=== PATIENT | female | born 1980 | race Caucasian/White ===

== ENCOUNTER 2019-12-08 10:42 | Day surgery (SDC) | payer BC ==
[~2019-12-08] VITALS: Ht 160 cm; Wt 170.0 kg
[2019-12-08 10:49] VITALS: BP 142/90
[2019-12-08] MEDS ORDERED: fentaNYL/PF 50MCG/1 ML 2ML syringe ONE (11:06)
[2019-12-08] MEDS ORDERED: LIDOcaine Viscous 15ml cup ONE (11:07)
[2019-12-08] MEDS ORDERED: MIDAZolam 5mg/5ml vial ONE (11:07)
[2019-12-08] MEDS ORDERED: OMEP-50 PO (11:20)
[2019-12-08] MEDS ORDERED: GABA-534 PO (11:20)
[2019-12-08] MEDS ORDERED: LISI1TAB29 PO (11:21)
[2019-12-08] MEDS ORDERED: MINO100T PO (11:24)
[2019-12-08] MEDS ORDERED: CYMBALTA PO (11:26)
[2019-12-08] MEDS ORDERED: METF750T46 PO (11:27)
[2019-12-08 11:54] VITALS: BP 136/73
[2019-12-08 12:04] VITALS: BP 135/76
[2019-12-08 12:14] VITALS: BP 125/67
== END 2019-12-08 12:30 | disposition home or self-care (01) ==
LOC: GI LAB 10:42
PROVIDERS: ATTEND Internal Medicine Gastroenterology
DX: K22.70 Barrett's esophagus without dysplasia (principal); K31.7 Polyp of stomach and duodenum; K44.9 Diaphragmatic hernia without obstruction or gangrene; K20.8 Other esophagitis; D17.5 Benign lipomatous neoplasm of intra-abdominal organs
CPT/HCPCS: 43239; 43251; 99152; C1773; J2250; J3010; J7040; A4620

== ENCOUNTER 2024-11-29 05:46 | Emergency (ER) | payer BC ==
[~2024-11-29] VITALS: Ht 157.5 cm; Wt 250.3 kg
[~2024-11-29 05:46] MED LIST: CYMBALTA PO; GABA-535 PO; LISI1TAB53 PO; METF750T46 PO; MINO100T10 PO; OMEP20CA16 PO
[2024-11-29 06:23] LABS: BASOPHILS % (AUTO) 0.3 % (0-1); EOSINOPHILS # (AUTO) 0.1 X10'3 (0-0.9); EOSINOPHILS % (AUTO) 0.6 % (0-6); HEMATOCRIT 43.1 % (35.0-45.0); HEMOGLOBIN 14.4 g/dl (12.0-16.0); LYMPHOCYTES # (AUTO) 2.1 X10'3 (1.1-4.8); LYMPHOCYTES % (AUTO) 14.7 % (21-51); MEAN CORPUSCULAR HEMOGLOBIN 29.1 PG (27.0-31.0); MEAN CORPUSCULAR HGB CONC 33.3 g/dL (33.0-36.5); MEAN CORPUSCULAR VOLUME 87.3 FL (78-98); MEAN PLATELET VOLUME 7.5 FL (7.4-10.4); MONOCYTES # (AUTO) 0.7 X10'3 (0-0.9); MONOCYTES % (AUTO) 4.6 % (2-12); NEUTROPHILS # (AUTO) 11.3 X10'3 (1.8-7.7); NEUTROPHILS % (AUTO) 79.8 % (42-75); PLATELET COUNT 338 X10'3 (140-440); RED BLOOD COUNT 4.93 X10'6 (4.20-5.60); RED CELL DISTRIBUTION WIDTH 13.8 % (11.5-14.5); WHITE BLOOD COUNT 14.2 X10'3 (4.5-11.0)
[2024-11-29] MEDS: diatr meglu/diatrizoate 30ml oral sol.-(3 dose) bottle PO ONE (06:30)
[2024-11-29] MEDS ORDERED: diatrozoate meglu/diatrozoate sod (37% iodine) 120ML oral solution PO ONE (06:30)
[2024-11-29] MEDS: haloperidol lactate 5mg/ml inj IVH ONE (06:34)
[2024-11-29 06:38] LABS: ALANINE AMINOTRANSFERASE 25 U/L (12-78); ALBUMIN 4.1 G/DL (3.4-5.0); ALBUMIN/GLOBULIN RATIO 1.2 (1.1-1.5); ALKALINE PHOSPHATASE 68 IU/L (46-116); ANION GAP 13 (8-16); ASPARTATE AMINO TRANSFERASE 21 U/L (10-37); BILIRUBIN,TOTAL 0.5 MG/DL (0.1-1.0); BLOOD UREA NITROGEN 10 MG/DL (7-18); BUN/CREATININE RATIO 12.2 (10.0-20.0); CALCIUM 9.4 MG/DL (8.5-10.1); CHLORIDE 108 MMOL/L (99-107); CREATININE 0.82 MG/DL (0.40-0.90); GLUCOSE 151 MG/DL (70-104); LIPASE 62 U/L (16-77); POTASSIUM 3.9 MMOL/L (3.5-5.1); SODIUM 144 MMOL/L (135-145); TOTAL CARBON DIOXIDE 23.5 MMOL/L (24-32); TOTAL PROTEIN 7.4 G/DL (6.4-8.2); eCRCL 69 ML/MIN; eGFR 75 ML/MIN
--- NOTE | 2024-11-29 06:43 | Physician Documentation ---
History of Present Illness Chief Complaint: Abdominal Pain w/vomiting Stated Complaint: DEHYDRATED Time Seen by MD: 06:06 HPI 44 yof h/o obesity, htn, daily thc use p/w n/v. Ongoing overnight into this am. No abdominal pain. No chest pain. No sob. No VB or discharge. Medication Reconciliation Allergies: Coded Allergies: Penicillins (Unverified Allergy, Intermediate, RASH,FEVER, 11/29/24) hydrocodone (Unverified Allergy, Intermediate, N/V,AMPAMPED,UP, 11/29/24) Scheduled Gabapentin (Gabapentin), 1 CAP PO DAILY, (Reported) Lisinopril/Hydrochlorothiazide (Lisinopril-Hctz 20-25 mg Tab), 1 TAB PO DAILY, (Reported) Metformin Hcl* (Glucophage ER*), 1 TAB PO DAILY, (Reported) Minocycline HCl (Minocycline HCl), 1 TAB PO DAILY, (Reported) Omeprazole (Omeprazole), 1 CAP PO DAILY, (Reported) [Cymbalta], 90 MG PO DAILY, (Reported) Review of Systems All Other Systems at this time: Reviewed and Negative Constitutional: Denies: fever Physical Exam Vital Signs: Temperature: 97.8, Source: Temporal, Heart Rate: 47, Respiratory Rate: 19, BP: 173/83, Pulse Oximetry: 100, Weight: 250.300 Oxygen Flow Rate: 0 Physical Exam non toxic pulm ctab abd soft non tender skin pwd moist mucous membranes neuro awake alert oriented. Progress Results/Orders Reviewed/noted all lab results: Yes Results/Orders Completed Orders - SHERICE HUANG MD Haloperidol Lact. (Haldol) (11/29/24 06:10) Diatr Meglu/Diatrizoate 30ml (Gastrograf (11/29/24 06:30) Medications Received in ER Medications (Trade) Dose Ordered Sig/Flavia Route PRN Reason Start Time Stop Time Status Last Admin Dose Admin (Haldol) 2 mg ONCE ONCE IVH 11/29/24 06:10 11/29/24 06:12 DC 11/29/24 06:34 2 MG Vital Signs 11/29/24 05:50 Temp 97.8 Pulse 47 Resp 19 B/P (MAP) 173/83 Pulse Ox 100 O2 Flow Rate 0 Laboratory Tests Test 11/29/24 06:03 White Blood Count 14.2 H Red Blood Count 4.93 Hemoglobin 14.4 Hematocrit 43.1 Mean Corpuscular Volume 87.3 Mean Corpuscular Hemoglobin 29.1 Mean Corpuscular Hemoglobin Concent 33.3 Red Cell Distribution Width 13.8 Platelet Count 338 Mean Platelet Volume 7.5 Neutrophils (%) (Auto) 79.8 H Lymphocytes (%) (Auto) 14.7 L Monocytes (%) (Auto) 4.6 Eosinophils (%) (Auto) 0.6 Basophils (%) (Auto) 0.3 Neutrophils # (Auto) 11.3 H Lymphocytes # (Auto) 2.1 Monocytes # (Auto) 0.7 Eosinophils # (Auto) 0.1 Basophils # (Auto) 0.0 CBC Comment Sodium Level 144 Potassium Level 3.9 Chloride Level 108 H Carbon Dioxide Level 23.5 L Anion Gap 13 Blood Urea Nitrogen 10 Creatinine 0.82 Estimated GFR/1.73 m2 75 BUN/Creatinine Ratio 12.2 Glucose Level 151 H Calcium Level 9.4 Total Bilirubin 0.5 Aspartate Amino Transf (AST/SGOT) 21 Alanine Aminotransferase (ALT/SGPT) 25 Alkaline Phosphatase 68 Total Protein 7.4 Albumin 4.1 Globulin 3.3 Albumin/Globulin Ratio 1.2 Lipase 62 Chemistry Comments Re-Evaluation Re-Evaluation : Re-Evaluation Time: 11:05 Re-Evaluation: Resolved Progress I reassessed the patient at 11:05 a.m. she is currently symptom free she is feeling much better she has no right upper quadrant tenderness. I further discussed her ultrasound and CT scan findings of enlarged gallbladder with borderline cholecystitis. She has no right upper quadrant tenderness. No fever no leukocytosis and with resolution of pain I doubt this radiologic finding is related to her nausea she is more likely related to her GLP 1 agonist and THC use Medical Decision Making Differential Dx:Considerations: Include: -Complete, Appendicitis, Bowel obstruction, Ischemic bowel, Ovarian cyst/torsion, Pancreatitis, Urinary tract infection Departure Disposition: 01 HOME / SELF CARE / HOMELESS Impression: Primary Impression: Vomiting Qualified Codes: R11.10 - Vomiting, unspecified Additional Impression: Cholelithiasis Qualified Codes: K80.80 - Other cholelithiasis without obstruction Additional Instructions: Please follow up with surgery. Call the number listed to schedule an appointment. Return for fever or pain in your right upper abdomen, right lower ribs. Also consider reducing your THC use, try CBD oil in combination with Capsaicin cream (over the counter) Referrals: NO PRIMARY CARE PROVIDER (PCP) HAI ULLOA MD Prescriptions ONDANSETRON ODT 4mg tablet (ONDANSETRON ODT) 4 Mg Tab.rapdis 1 TAB PO Q6H PRN PRN for nausea/vomiting for 4 Days, #16 TAB 0 Refills Prov: SHERICE HUANG MD 11/29/24 Signature Scribe Signature: [email or web address] Attestation: SHERICE Dial MD November 29, 2024 06:43
[2024-11-29 07:07] LABS: BILIRUBIN,URINE NEGATIVE (Neg); CLARITY,URINE SLIGHTLY CLOUDY (Clear); COLOR,URINE YELLOW (Yellow); GLUCOSE, URINE NEGATIVE (Neg); KETONES,URINE 40 mg/dl (Neg); LEUKOCYTE ESTERASE ,URINE NEGATIVE (Neg); NITRITES, URINE NEGATIVE (Neg); OCCULT BLOOD,URINE MODERATE (Neg); PROTEIN,URINE TRACE mg/dl (Neg); UROBILINOGEN,URINE 0.2 E.U/dL (0.2-1.0)
[2024-11-29 07:12] LABS: URINE HCG NEGATIVE (NEG)
[2024-11-29 07:19] LABS: UA COLLECTION TYPE CLN CATCH MIDSTREAM
[2024-11-29 07:21] LABS: SQUAMOUS EPITHELIAL CELL,UR MODERATE /LPF (FEW)
[2024-11-29 07:23] LABS: BACTERIA,URINE FEW /HPF (Neg); WBC,URINE 0-4 /HPF (0-4)
[2024-11-29 07:24] LABS: RBC,URINE 0-2 /HPF (0-2)
[2024-11-29 07:26] LABS: AMORPHOUS PHOSPHATES 2+
[2024-11-29] MEDS: proCHLORperazine 10 MG/2 ml inj IV ONE (07:31)
[2024-11-29] MEDS: diphenhydrAMINE 50 mg/ml inj IV ONE (07:32)
--- NOTE | 2024-11-29 07:42 | ELECTROCARDIOGRAPH REPORT ---
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 Alvin Carney Measurements Intervals [place] Rate: 41 P: 50 DC: 180 QRS: 49 QRSD: 102 T: 37 QT: 490 QTc: 405 Interpretive Statements Slow sinus arrhythmia Electronically Signed On 11-29-2024 15:46:[address] Alvin Carney Please click the below link to view image of tracing.
[2024-11-29] MEDS ORDERED: iohexol 300mg/ml 100ml inj. ONE (08:23)
--- NOTE | 2024-11-29 09:15 | RADIOLOGY REPORT ---
CLINICAL INFORMATION: 44 years old, Female; abdominal pain. TECHNIQUE: Axial CT images of the abdomen and pelvis were obtained after the uneventful administratio n of 100 mL Omnipaque 300 IV contrast. Coronal and sagittal reformatted images were obtained, reviewe d, and stored. All CT scans at this medical facility are performed using dose modulation techniques a s appropriate to a performed exam including the following: Automated exposure control was utilized; a djustment of the MA and/or KV according to patient size; and use of iterative reconstruction techniqu e. CTDIvol = 34.02 mGy DLP = 1799.77 mGy-cm COMPARISON: None FINDINGS: Lung bases: Atelectasis in the lung bases. Liver: Mild hepatomegaly, with the liver measuring up to 16.5 cm in craniocaudal dimension at approxi mately the mid clavicular line. Biliary: Calcified gallstones in the gallbladder. There is pericholecystic fluid possible gallbladder wall thickening.Spleen: Unremarkable. Pancreas: Unremarkable. No inflammatory changes, ductal dilatation, or mass identified. Adrenal glands: Unremarkable. No mass. Kidneys: No hydronephrosis or mass. Aorta/Vascular: No aneurysm or significant calcification. Retroperitoneum: Small subcentimeter retroperitoneal lymph nodes, likely reactive. Bowel/mesentery: No small bowel obstruction. No free air or free fluid. Appendix is not visualized. P ostsurgical changes of prior gastric sleeve surgery. Pelvic organs: Grossly unremarkable. Bladder: Unremarkable. No mass. Abdominal wall: Fat containing infraumbilical ventral hernia just to the left of midline measuring up to 6.6 cm, with mild stranding. Bones: No acute fracture or focal intraosseous lesion. IMPRESSION: 1. Cholelithiasis. There is pericholecystic fluid and possible gallbladder wall thickening. Correlate clinically for acute cholecystitis. Ultrasound could be obtained to further evaluate if clinically i ndicated. 2. Fat containing infraumbilical ventral hernia with mild stranding. 3. Mild hepatomegaly. 4. Additional findings as described above.
--- NOTE | 2024-11-29 09:54 | RADIOLOGY REPORT ---
CLINICAL INFORMATION: 44 years old, Female; abdominal pain. TECHNIQUE: Grayscale sonographic imaging of the right upper quadrant of the abdomen was performed, a ssisted by color Doppler technique. COMPARISON: None FINDINGS: The gallbladder wall measures 3 mm in thickness, at the upper limits of normal. There ar e shadowing gallstones in the gallbladder. Small amount of pericholecystic fluid. Sonographic Georges' s sign not reported. The common bile duct measures 3.3 mm in diameter, within normal limits. Liver is enlarged, measuring up to 19.2 cm in craniocaudal dimension. Increased echogenicity of the liver suggesting fatty infiltration. The pancreas is partly obscured, likely by bowel gas. The visualized portions appear normal. The right kidney measures 11.5 cm. There is no hydronephrosis. Normal cortical echogenicity and co rtical thickness. IMPRESSION: 1. Cholelithiasis with gallbladder wall thickness at the upper limits of normal and small amount of p ericholecystic fluid. Acute cholecystitis not excluded. Correlate with clinical findings. 2. Hepatomegaly and hepatic steatosis.
[2024-11-29] MEDS ORDERED: ONDA-243 PO (11:09)
[2024-11-29 11:28] VITALS: BP 176/105; PULSE 52; RESP 16; TEMP 97.8; O2SAT 95
== END 2024-11-29 14:43 | disposition home or self-care (01) ==
LOC: ER 05:47
DX: K80.20 Calculus of gallbladder without cholecystitis without obstruction (principal); R11.10 Vomiting, unspecified; I10 Essential (primary) hypertension; Z88.0 Allergy status to penicillin; Z88.5 Allergy status to narcotic agent; Z79.899 Other long term (current) drug therapy; Z79.84 Long term (current) use of oral hypoglycemic drugs
CPT/HCPCS: 36415; 74177; 76700; 80053; 81001; 81025; 83690; 84484; 85025; 93005; 96374; 96375; 99285; J0780; J1200; J1630; J7030; Q9967; 96361

== ENCOUNTER 2025-06-14 07:59 | Emergency (ER) | payer BC ==
[~2025-06-14] VITALS: Ht 157.5 cm; Wt 100.0 kg
[~2025-06-14 07:59] MED LIST changes: +ONDA-243 PO
--- NOTE | 2025-06-14 08:39 | ELECTROCARDIOGRAPH REPORT ---
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 JOSEPHINE Matthews Measurements Intervals [place] Rate: 51 P: 50 MN: 171 QRS: 70 QRSD: 104 T: 55 QT: 458 QTc: 422 Interpretive Statements Slow sinus arrhythmia Baseline wander in lead(s) I,II,III,aVR,aVL,aVF,V1,V2,V3,V4,V5 Electronically Signed On 06-14-2025 16:53:[address] JOSEPHINE Matthews Please click the below link to view image of tracing.
[2025-06-14] MEDS: ondansetron/PF 4mg/2ml inj IV ONE (08:53)
[2025-06-14] MEDS: normal saline 1000ML IV soln IVB ONE (09:01)
[2025-06-14 09:23] LABS: MEAN PLATELET VOLUME 6.9 FL (7.4-10.4); RED CELL DISTRIBUTION WIDTH 15.0 % (11.5-14.5)
[2025-06-14 09:37] LABS: CREATININE 0.74 MG/DL (0.40-0.90); TOTAL CARBON DIOXIDE 24.9 MMOL/L (24-32); eCRCL 75 ML/MIN; eGFR 84 ML/MIN
--- NOTE | 2025-06-14 09:54 | Physician Documentation ---
History of Present Illness ~ Chief Complaint: Vomiting Stated Complaint: VOMITING POST OP COMPLICATIONS Time Seen by MD: 09:08 HPI 45 years old female with past medical history of obesity, cholecystitis status post cholecystectomy, using Mounjaro for weight loss came with a chief complaints of abdominal pain and vomiting. She endorses that she was using Mounjaro for weight loss and she she did not take it for last 3 weeks however she took 15 mg dose on yesterday and later she is having vomiting and abdominal pain. She reports abdominal pain, diffuse, rated 10/10, not related to anywhere without any aggravating or relieving factors. She is complaining of the vomiting, bilious, multiple episodes from yesterday night and not associated with hematemesis. She has abdominal distention for the past couple of weeks. She endorses dyspepsia symptoms for the past couple of days and also excessive sweating. She denied jaundice, hematemesis, melena, pruritus, fever, chest pain, palpitations, weakness of limbs, slurring of speech, deviation of angle of mouth, seizures, drooling of saliva, cough, wheezing. Medication Reconciliation Allergies: Coded Allergies: Penicillins (Unverified Allergy, Intermediate, RASH,FEVER, 06/14/25) hydrocodone (Unverified Allergy, Intermediate, N/V,AMPAMPED,UP, 06/14/25) Scheduled Gabapentin (Gabapentin), 1 CAP PO DAILY, (Reported) Lisinopril/Hydrochlorothiazide (Lisinopril-Hctz 20-25 mg Tab), 1 TAB PO DAILY, (Reported) Metformin Hcl* (Glucophage ER*), 1 TAB PO DAILY, (Reported) Minocycline HCl (Minocycline HCl), 1 TAB PO DAILY, (Reported) Omeprazole (Omeprazole), 1 CAP PO DAILY, (Reported) Prochlorperazine Maleate (Compazine), 1 TAB PO Q6H [Cymbalta], 90 MG PO DAILY, (Reported) Scheduled PRN Diphenhydramine HCl (Benadryl), 1 CAP PO HS PRN for abdominal cramps ONDANSETRON ODT 4mg tablet (Ondansetron Odt), 1 TAB PO Q6H PRN PRN for nausea/vomiting Past Medical History Past Medical History: Hypertension, Cholelithiasis, GERD Past Surgical History: cholecystectomy Alcohol Use: None Drug Use: marijuana Review of Systems Constitutional: Reports: no symptoms reported Eyes: Reports: no symptoms reported ENT: Reports: no symptoms reported Respiratory: Reports: no symptoms reported Cardiovascular: Reports: no symptoms reported Gastrointestinal: Reports: see HPI, abdomen distended, abdominal pain, nausea, vomiting Genitourinary: Reports: no symptoms reported Female Genitalia: Reports: no reported symptoms Neurological: Reports: no symptoms reported Musculoskeletal: Reports: no symptoms reported Integumentary: Reports: no symptoms reported Allergic/Immunologic: Reports: no symptoms reported Hematologic/Lymphatic: Reports: no symptoms reported Endocrine: Reports: no symptoms reported Psychiatric: Reports: no symptoms reported Physical Exam Vital Signs: Temperature: 98.4, Source: Temporal, Heart Rate: 51, Respiratory Rate: 16, BP: 144/81, Pulse Oximetry: 100, Weight: 100.000 Oxygen Flow Rate: 0 Pulse Oximetry Reflects: adequate oxygenation General Appearance: alert, WD/WN, no apparent distress General Appearance Anxious and little bit of irritable EENT: PERRL/EOMI, normal ENT inspection, TMs normal, dry mucous membranes Neck: normal inspection, full range of motion, supple, non-tender Respiratory: lungs clear, normal breath sounds, no respiratory distress Chest: no accessory muscle use Cardiology Exam: normal peripheral pulses, regular rate, rhythm, no gallop, no JVD, no murmur Cardiovascular Anasarca is present. Peripheral Pulses: 0 carotid (R), 0 carotid (L), 0 radial (R), 0 radial (L), 0 femoral (R), 0 femoral (L), 0 dorsalis pedis (R), 0 dorsalis pedis (L), 0 posterior tib (R), 0 posterior tib (L), 0 other Peripheral Pulses All peripheral pulses are felt equally Gastrointestinal: bowels sounds present, liver enlargement, tenderness Gastrointestinal Soft, mildly distended. Tenderness all over the abdomen more towards the hypogastrium and bilateral iliac fossa. No rebound tenderness/guarding/rigidity/cullens sign Rectal: deferred Back: normal inspection, no CVA tenderness, no vertebral tenderness Extremities: normal range of motion, non-tender, normal inspection, no calf tenderness, no cyanosis, normal capillary refill Neurologic: oriented x4, buckle stapler II-XII nml as tested, memory intact Psychiatric: normal mood/affect Skin: normal color, warm/dry, rash Lymphatic: no adenopathy Progress Results/Orders Results/Orders Orders - ZACHERY RUFF DO Ct Abdomen Pelvis (06/14/25 11:06) Medications Received in ER Medications (Trade) Dose Ordered Sig/Flavia Route PRN Reason Start Time Stop Time Status Last Admin Dose Admin (Zofran 4mg/2ml vial) 4 mg ONCE ONCE IV 06/14/25 08:40 06/14/25 08:41 DC 06/14/25 08:53 4 MG (0.9% sodium chloride (NS) 1000ml IV soln) 1,000 ml ONCE ONCE IVB 06/14/25 08:40 06/14/25 08:42 DC 06/14/25 09:01 1,000 ML (Protonix 40mg IV) 40 mg ONCE ONCE IV 06/14/25 08:40 06/14/25 08:54 DC 06/14/25 09:01 40 MG (morphine inj.) 1 mg ONCE ONCE IV 06/14/25 08:45 06/14/25 08:46 DC 06/14/25 09:01 1 MG (Compazine inj) 10 mg ONCE ONCE IV 06/14/25 08:50 06/14/25 08:54 DC 06/14/25 09:12 10 MG Vital Signs 06/14/25 06/14/25 06/14/25 06/14/25 08:03 09:01 09:14 10:29 Temp 98.4 98.4 Pulse 51 51 74 Resp 25 26 16 13 B/P (MAP) 144/81 (102) 158/77 (104) Pulse Ox 99 100 99 O2 Flow Rate 0 0 0 06/14/25 06/14/25 10:41 11:04 Temp 98.4 Resp 17 17 B/P (MAP) 147/89 Pulse Ox 100 Laboratory Tests Test 06/14/25 09:12 06/14/25 09:42 06/14/25 10:04 White Blood Count 13.1 H Red Blood Count 4.43 Hemoglobin 12.7 Hematocrit 40.1 Mean Corpuscular Volume 90.4 Mean Corpuscular Hemoglobin 28.7 Mean Corpuscular Hemoglobin Concent 31.8 L Red Cell Distribution Width 15.0 H Platelet Count 465 H Mean Platelet Volume 6.9 L Neutrophils (%) (Auto) 80.4 H Lymphocytes (%) (Auto) 14.6 L Monocytes (%) (Auto) 3.3 Eosinophils (%) (Auto) 1.3 Basophils (%) (Auto) 0.4 Neutrophils # (Auto) 10.6 H Lymphocytes # (Auto) 1.9 Monocytes # (Auto) 0.4 Eosinophils # (Auto) 0.2 Basophils # (Auto) 0.1 CBC Comment Sodium Level 141 Potassium Level 3.6 Chloride Level 106 Carbon Dioxide Level 24.9 Anion Gap 10 Blood Urea Nitrogen 12 Creatinine 0.74 Estimated GFR/1.73 m2 84 BUN/Creatinine Ratio 16.2 Glucose Level 114 H Calcium Level 9.0 Total Bilirubin 0.5 Aspartate Amino Transf (AST/SGOT) 38 H Alanine Aminotransferase (ALT/SGPT) 55 Alkaline Phosphatase 92 Total Protein 7.2 Albumin 3.5 Globulin 3.7 Albumin/Globulin Ratio 0.9 L Lipase 46 Chemistry Comments Prothrombin Time 10.0 INR International Normalized Ratio 1.0 Coagulation Comments Urine Specimen Description Voided Urine Color Yellow Urine Clarity Slightly cloudy Urine pH 8.5 Urine Specific [place] 1.020 Urine Protein Negative Urine Glucose (UA) Negative Urine Ketones 15 H Urine Occult Blood Negative Urine Nitrite Negative Urine Bilirubin Negative Urine Urobilinogen 0.2 Urine Leukocyte Esterase Negative Urine RBC None seen Urine WBC None seen Urine Squamous Epithelial Cells Many Urine Transitional Epithelial Cells Few Urine Renal Cells Few Urine Amorphous Phosphates 1+ Urine Bacteria 2+ Urine Mucus Few Urine Culture Indicated Not ind Volume Urine Centrifuged 10 ml Urine Comment Urine Opiates Screen Positive Urine Methadone Screen Negative Urine Fentanyl Screen Negative Urine Barbiturates Screen Negative Urine Phencyclidine Screen Negative Urine Amphetamines Screen Negative Urine Benzodiazepines Screen Negative Urine Cocaine Screen Negative Urine Cannabinoids Screen Positive Drug Screen Comment Medical Decision Making Additional information obtaine: old records Findings Pain abdomen and vomiting likely secondary to possible cannabis induced hyperemesis syndrome versus drug induced(mounjarro) Fatty liver disease Sinus Bradycardia Reactive leukocytosis Thrombocytosis We Considered the differential diagnosis of acute gastritis/duodenitis, nephroureterolithiasis, drug induced CBC shows reactive leukocytosis it could be secondary to of abdominal pain and vomiting with neutrophilic preponderance and platelet count of 465 CMP seems to be normal with AST 38, ALT 55, lipase 46 Urinalysis is negative for UTI on UA tox showed cannabis positive Ultrasound abdomen showed severe fatty liver disease EKG showed sinus bradycardia and heart rate is improved to 65 while we are discharging the patient Clinical picture seems to be secondary to high dose of Mounjaro use and we recommended to hold Mounjaro follow up with primary care physician Patient abdominal pain, vomiting subsided with symptomatic supportive management with morphine, pantoprazole, IV fluids, Compazine Recommended to use Compazine, Benadryl as needed Follow up with primary care physician for fatty liver disease. Diff Dx GI Bleed:Consideration: Unlikely: AE fistula, Angiodysplasia, Bleeding diathesis, Blood loss anemia, Carcinoma, Diverticulosis, Diverticulitis, Esophageal varicies, Esophagitis, Gastritis, Gastroenteritis, Inflammatory BD, Susy-Romero syndrome, Meckel's diverticulum, PUD, Other Diff Dx Pain:Considerations: Include: Bowel obstruction, Cholangitis, Gastritis/PUD, Hepatitis, Urinary obstruction, Urinary tract infection, Urolithiasis Diff Dx N/V/D:Considerations: Include: Appendicitis, Bowel obstruction, Drug toxicity, Pancreatitis, Urolithiasis Diff Dx Rectal:Considerations: Unlikely: Fissure, Fistula, Foreign body, Impaction, Perirectal abscess, Rectal prolapse, Subcutaneous abscess, Thrombosed hemorrhoid, Ulcer, UTI, Other Departure Disposition: HOME / SELF CARE / HOMELESS Impression: Primary Impression: Pain, abdominal Additional Impressions: Vomiting Drug-induced nausea and vomiting Fatty liver Sinus bradycardia Cannabis hyperemesis syndrome Condition: Stable Discharge Instructions: Nausea and Vomiting, Adult, Dehydration, Elderly Additional Instructions: followup with pcp continue compazine & benadryl as needed. Referrals: NO PRIMARY CARE PROVIDER (PCP) Prescriptions Diphenhydramine HCl (Benadryl) 25 Mg Capsule 1 CAP PO HS PRN for abdominal cramps for 5 Days, #5 CAP 0 Refills Prov: NAVARRO VASQUEZ, RES 06/14/25 Prochlorperazine Maleate (Compazine) 10 Mg Tablet 1 TAB PO Q6H for 4 Days, #16 TAB 0 Refills Prov: NAVARRO VASQUEZ, RES 06/14/25 Education Educated: Patient Educated regarding: diagnosis, treatment, prognosis, need for follow up Additional Comment Seen with PA/[employer] This is an attending supervisory note for the resident of record. I have personally participated in care of this patient, has been present during critical and/or byrd portions of the patient's service, participated in the evaluation, and provided major portion of medical decision-making, independently interpreted imaging and laboratory studies and participated in disposition of this patient. This is a 45-year-old female with a past medical history of morbid obesity, status post cholecystectomy, who is currently on Mounjaro therapy for weight loss. She presented for evaluation of abdominal pain and vomiting that began after she received a 2nd injection of Mounjaro, full dose of 15 mg. This occurred yesterday. The patient reports crampy abdominal pain, diffuse, rate of 10/10. The particular aggravating or palliating factors were elicited with the patient. She reports of repeated episodes of nausea and vomiting. Facility Status: ED Holds, [facility] process The plan was discussed with the patient, who demonstrates clear understanding of the plan and is in agreement with the plan unless otherwise noted in the chart. All questions have been answered, all concerns were addressed unless otherwise documented. I was available throughout their ED stay for frequent reassessment and questions. Differential Diagnoses (considered and possible or likely): [Differential diagnosis considered includes acute appendicitis, acute cholecystitis, pancrea titis, gastritis, PUD, diverticulitis, mesenteric ischemia, abdominal aortic aneurysm, bowel obstruction, enteritis, colitis, fecal impaction, volvulus, IBS, inflammatory bowel disease, specific food intolerance, peritonitis, perforated viscous, malignancy, UTI, abscess, and abdominal pain NOS. Pelvic source of pain was also considered including endometritis, dysmenorrhea, ovarian cyst, ovarian torsion, PID, TOA, cervicitis, vaginitis, or uterine fibroid. History, physical exam, and workup exclude many of the more serious causes listed above. ] ??Differential Diagnoses (considered and unlikely, not requiring evaluation currently): [See above] MDM Data Please see [facility] for the following: Independent Historians and external Records Review. Historian: [Patient] Independent Historians: ?[Record review] Medication Management: [Reviewed medication list] Social History and determinants: [Reviewed] Please see the body of the note for the following: Any independent interpretations of ECG, imaging studies. All vitals signs/haemodynamics, ordered tests were independently reviewed and interpreted by myself. Nursing triage complaint and vitals reviewed, additional nursing notes were reviewed as available and I agree unless otherwise noted or documented in contradiction in the chart Vital Signs: Independently reviewed Labs: Independently interpreted Imaging: Independently interpreted Old Medical Records: Independently reviewed, see HPI for relevant summary and information Pulse Oximetry: [98%] interpreted as [normal on room air] by me [[employer]: [Regular Rate, Regular rhythm, no ectopy, NSR] reviewed and interpreted by me] Additionally notably showing: [Hemodynamics reviewed. It is the patient is not tachycardic, not febrile, no evidence of hypotension respiratory distress. Laboratory studies reviewed as well. CBC shows a minimal leukocytosis, 80% neutrophils, normal hemoglobin, normal platelets. Coagulation panel is unremarkable. Chemistry notable for mild dehydration. The toxicology is positive for opioids and cannabinoid. UA nondiagnostic for UTI. Ultrasound of the abdomen and was obtained showing no acute disease. ] Tests considered but not ordered include: [CT of the abdomen and pelvis has been considered, however the patient is now symptom free.] Social Determinants of Health Impact: Patient was evaluated in [facility] [place] to healthcare due to below par ratio of patient to medical providers. [] Comorbid Conditions Impacting Present Evaluation and Care/Treatment: [This is a administration of one jaw] Management Discussions with other Healthcare Providers: [None] Treatment and Disposition Medication Management (Given or considered): [Pain management and antiemetics]. See EMR for details Consideration for Hospitalization/Escalation/Deescalation of Care: Admission for observation has been considered, [however the patient is able to tolerate p.o., their symptoms are controlled, they are able to rely on oral medications, and their chief complaint/diagnosis can be managed on outpatient basis.] ?ED Course:?[The patient had completely recover, no longer vomiting, pain is controlled.] ?Shared decision making:?[Patient is hemodynamically stable for discharge home with follow with their primary care provider. [ ] Specific and cautious return precautions provided and discussed with full understanding. Any incidental fi ndings were also discussed and follow up recommendations given. [] All questions answered. Patient/family were able to verbalize back return precautions. Patient/family agree to plan. Copies of imaging and laboratory studies were provided.] Code status:?FULL Please see the full Electronic Medical Record for full details of nursing documentation, medications list, other records of complete past medical history and conditions, vital signs, laboratory studies, and any radiologic study interpretations by radiologists. Portions of this note were completed using [employer] software and as a result there may exist minor errors in spelling. I have reviewed elements of past family and social history and agree as included in note. 60 Signature Scribe Signature: The note accurately reflects work and decisions made by me.Navarro Vasquez - Resident 06/14/25 10:39 Attestation: The note accurately reflects work and decisions made by me.Navarro [facility] - Resident 06/14/25 10:39 Date: Jun 14, 2025 Time: 11:18 This note accurately reflects clinical decisions, work performed by myself, Zachery Ruff, NAVARRO CHAUDHARI, RES Jun 14, 2025 09:54 ZACHERY RUFF DO Jun 14, 2025 11:14
[2025-06-14 10:01] LABS: INR 1.0 INR
[2025-06-14 10:19] LABS: LEUKOCYTE ESTERASE ,URINE NEGATIVE (Neg); NITRITES, URINE NEGATIVE (Neg); OCCULT BLOOD,URINE NEGATIVE (Neg)
--- NOTE | 2025-06-14 10:21 | RADIOLOGY REPORT ---
INDICATION: PAIN ABDOMEN S/P CHOLECYSTECTOMY TECHNIQUE: Multiple real-time sonographic images of the abdomen were obtained. COMPARISON: US ULTRASOUND OF ABDOMEN on DOS: 11/29/24, CT CT ABDOMEN PELVIS W/ IV CONTRAST on DOS: 11/29/24 FINDINGS: Liver is enlarged measuring 20.5 cm with [id number] diffuse fatty infiltration. Gallbladder has been resected. No focal fluid collections are seen. CBD measures 0.4 cm, within normal limits. Pancreas poorly assessed due to overlying bowel gas. Right kidney measures 11.1 cm. No stones or hydronephrosis. Small volume of ascites. IMPRESSION: No focal fluid collections and gallbladder fossa. No acute abnormality.
[2025-06-14 10:29] VITALS: PULSE 74
[2025-06-14 10:29] LABS: UA COLLECTION TYPE VOIDED
[2025-06-14] MEDS ORDERED: PROC-8 PO (10:32)
[2025-06-14] MEDS ORDERED: DIPH25CA83 PO (10:32)
[2025-06-14 10:36] LABS: AMORPHOUS PHOSPHATES 1+; MUCUS STRANDS FEW /LPF (Neg); RENAL CELLS, URINE FEW /HPF; SQUAMOUS EPITHELIAL CELL,UR MANY /LPF (FEW)
[2025-06-14 10:41] LABS: URINE AMPHETAMINE SCREEN NEGATIVE (Neg); URINE BARBITUATE SCREEN NEGATIVE (Neg); URINE BENZODIAZEPINES SCREEN NEGATIVE (Neg); URINE CANNABINOID SCREEN POSITIVE (Neg); URINE COCAINE SCREEN NEGATIVE (Neg); URINE METHADONE SCREEN NEGATIVE (Neg); URINE OPIATE SCREEN POSITIVE (Neg); URINE PHENCYCLIDINE SCREEN NEGATIVE (Neg)
[2025-06-14 11:04] VITALS: BP 147/89; RESP 17; TEMP 98.4; O2SAT 100
== END 2025-06-14 10:58 | disposition home or self-care (01) ==
LOC: ER 08:00
DX: R10.13 Epigastric pain (principal); R00.1 Bradycardia, unspecified; K76.0 Fatty (change of) liver, not elsewhere classified; R11.16 Cannabis hyperemesis syndrome; I10 Essential (primary) hypertension; K21.9 Gastro-esophageal reflux disease without esophagitis; F12.90 Cannabis use, unspecified, uncomplicated; Z88.0 Allergy status to penicillin; Z88.5 Allergy status to narcotic agent; Z88.8 Allergy status to other drugs, medicaments and biological substances; Z79.899 Other long term (current) drug therapy
CPT/HCPCS: 36415; 76700; 80053; 80305; 81001; 83690; 85025; 85610; 93005; 96361; 96374; 96375; 99285; J0780; J2270; J2405; J2470; J7030